=== PATIENT | male | born 1995 | race Caucasian/White ===

== ENCOUNTER 2017-05-31 17:55 | Emergency (ER) | payer OTHER ==
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
[2017-05-31] MEDS ORDERED: IBUPROFEN 800 MG TAB PO ONE (18:06)
[2017-05-31 18:07] VITALS: TEMP 98.2
[2017-05-31] MEDS ORDERED: OXYCODONE/APAP 5/325 TAB PO ONE (18:34)
[2017-05-31 19:28] VITALS: BP 147/89; PULSE 87; RESP 18; O2SAT 95
== END 2017-05-31 19:39 | disposition home or self-care (01) ==
DX: S52.372A Galeazzi's fracture of left radius, initial encounter for closed fracture (principal); V28.9XXA Unspecified motorcycle rider injured in noncollision transport accident in traffic accident, initial encounter; Y92.410 Unspecified street and highway as the place of occurrence of the external cause; Y93.89 Activity, other specified
CPT/HCPCS: 96374; A4565; J2270

== ENCOUNTER → 2017-06-21 | Outpatient (CLI) | payer OTHER | LOC: BMCIMAGING 10:20 | PROVIDERS: ATTEND Orthopaedic Surgery Hand Surgery | DX: S52.302D Unspecified fracture of shaft of left radius, subsequent encounter for closed fracture with routine healing (principal); M25.522 Pain in left elbow ==

== ENCOUNTER → 2017-07-19 | Outpatient (CLI) | payer OTHER | LOC: BMCIMAGING 15:15 | PROVIDERS: ATTEND Orthopaedic Surgery Hand Surgery | DX: S52.322D Displaced transverse fracture of shaft of left radius, subsequent encounter for closed fracture with routine healing (principal) ==

== ENCOUNTER → 2017-08-17 | Outpatient (CLI) | payer OTHER | LOC: BMCIMAGING 11:07 | PROVIDERS: ATTEND Orthopaedic Surgery Hand Surgery | DX: S52.322D Displaced transverse fracture of shaft of left radius, subsequent encounter for closed fracture with routine healing (principal) ==

== ENCOUNTER → 2017-09-17 | Outpatient (CLI) | payer OTHER | LOC: BMCIMAGING 16:50 | PROVIDERS: ATTEND Emergency Medicine | DX: M25.571 Pain in right ankle and joints of right foot (principal); M79.671 Pain in right foot; X50.0XXA Overexertion from strenuous movement or load, initial encounter; S92.251D Displaced fracture of navicular [scaphoid] of right foot, subsequent encounter for fracture with routine healing ==